=== PATIENT | female | born 1970 | race Caucasian/White ===

== ENCOUNTER 2021-05-22 08:25 | Outpatient (CLI) | payer SELFPAY ==
[~2021-05-22 08:25] MED LIST: CLON2TAB; FENTANYL PATCH TP; HYDR12.517 PO; LORA1TAB PO; ONDA4TAB7 PO; OXYC-501; OXYCODONE PO; SERT25TA PO
== END 2021-05-22 23:59 | disposition home or self-care (01) ==
LOC: CFH 08:25
PROVIDERS: ATTEND Family Medicine
DX: Z02.9 Encounter for administrative examinations, unspecified (principal)